=== PATIENT | female | born 1975 | race Caucasian/White ===

== ENCOUNTER 2016-06-10 08:28 | Emergency (ER) | payer SELFPAY ==
[~2016-06-10] VITALS: Wt 98.0 kg
[2016-06-10] MEDS ORDERED: IBUPROFEN 800 MG TAB PO ONE (09:30)
--- NOTE | 2016-06-10 09:51 | RADRPT ---
PROCEDURE: CT Brain without contrast. CLINICAL INDICATION: Parietal headaches for 3 days TECHNIQUE: CT scan of the brain was performed on a multidetector high-resolution CT scan. Axial im aging was obtained of the brain without contrast administration. Coronal and sagittal reformatted i mages were obtained from the axial source images. Standard CT scan of the head without contrast prot ocols were performed. The total exam CTDI equals 44.73 mGy and the total exam DLP equals 630.2 mGy-cm. One or more of the following dose reduction techniques were used: - Automated exposure control. - Adjustment of the mA and/or kV according to patient size. Use of iterative reconstruction technique. COMPARISON: None. FINDINGS: The ventricular system and peripheral CSF spaces are unremarkable. Negative for intracranial masses hemorrhages or midline shift. Thapa-white matter differentiation is unremarkable. The bones and ca lvarium are intact. Paranasal sinuses visualized are unremarkable. The mastoids are unremarkable. IMPRESSION: Normal CT scan of the head without contrast. RPTAT:AAJJ Physician Kyle Date Time Electronically viewed and signed by Physician Kyle on 06/10/2016 09:51 BM/
--- NOTE | 2016-06-10 13:09 | ERD ---
ER Documentation Chief Complaint Date/Time DATE: 06/10/16 TIME: 13:06 Chief Complaint HEADACHE X 4 DAYS HPI Patient is a 32-year-old female with no medical problems who presents with a headache. The patient also has bilateral lower extremity swelling. She has had a headache for the past 15 days and it comes and goes. She tried Tylenol for pain but none today. She has had bilateral lower extremity swelling the left being more than the right for the past 2 days. She has no swelling currently though and says that it is worse at night. 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 Upon review of old medical records this is the patient's first visit to the emergency department. ROS All systems reviewed and are negative except as per history of present illness. Allergies Allergies: Coded Allergies: No Known Allergy (Unverified , 06/10/16) PMhx/Soc Medical and Surgical Hx: pt denies Medical Hx, pt denies Surgical Hx History of Surgery: No Anesthesia Reaction: No Hx Neurological Disorder: No Hx Respiratory Disorders: No Hx Cardiac Disorders: No Hx Psychiatric Problems: No Hx Miscellaneous Medical Probl: No Hx Alcohol Use: No Hx Substance Use: No Hx Tobacco Use: No Smoking Status: Never smoker FmHx Family History: No diabetes Physical Exam Vitals Vital Signs Date Time Temp Pulse Resp B/P Pulse Ox O2 Delivery O2 Flow Rate FiO2 06/10/16 08:30 98.0 79 18 130/71 99 Physical Exam Const: No acute distress Head: Atraumatic Eyes: Normal Conjunctiva ENT: Normal External Ears, Nose and Mouth. Neck: Full range of motion..~ No meningismus. Resp: Clear to auscultation bilaterally Cardio: Regular rate and rhythm, no murmurs Abd: Soft, non tender, non distended. Normal bowel sounds Skin: No petechiae or rashes Back: No midline or flank tenderness Ext: No cyanosis, or edema Neur: Awake and alert, cranial nerves II through XII are intact, no slurred speech Psych: Normal Mood and Affect Results 24 hrs Current Medications Medications (Trade) Dose Ordered Sig/Nisha Route PRN Reason Start Time Stop Time Status Last Admin Dose Admin Ibuprofen (Motrin) 800 mg ONCE ONCE PO 06/10/16 09:30 06/10/16 09:31 DC 06/10/16 09:09 Procedures/MDM EKG read by me: Rate/Rhythm: Regular rate and rhythm at a normal rate Intervals: Normal Impression: No evidence of ischemia or arrhythmia CT head negative per radiology. Patient is a 40-year-old female who presents with headache and bilateral lower extremity swelling. At this point I believe outpatient management is appropriate. The patient has a normal EKG and normal CT scan of the brain. I doubt intracranial hemorrhage, mass, or meningitis. I doubt true congestive heart failure at this time. The patient has no swelling in the emergency department and I doubt DVT or infection. The patient will need to follow-up with the local clinics as she does not currently have a primary doctor. She can return for any worsening symptoms. Departure Diagnosis: Primary Impression: Edema Edema type: unspecified Qualified Code: R60.9 - Edema, unspecified type Additional Impression: Headache Headache type: unspecified Headache chronicity pattern: acute headache Intractability: not intractable Qualified Code: R51 - Acute nonintractable headache, unspecified headache type Condition: Fair Patient Instructions: Self-Care for Headaches, Peripheral Edema, Bilateral [facility]errals[facility] Usted se antoine hecho un examen mdico de control que le indica que no est en fallon condicin que requiera tratamiento urgente en el Departamento de Emergencia. Un estudio ms profundo y el tratamiento de chambers condicin pueden esperar sin ningn riesgo hasta que usted sea atendida/o en el consultorio de chambers mdico o fallon cl ros. Es responsabilidad suya arreglar fallon ike para el seguimiento del krishna. MANEJO DE CONDICIONES NO URGENTES EN EL FUTURO 1) Si usted tiene un mdico de atencin primaria: Usted debera llamar a chambers mdico de atencin primaria antes de venir al departamento de emergencia. Despus de las horas de consultorio, chambers doctor o chambers asociado/a est disponible por telfono. El mdico o enfermero de yadira en el servicio telefnico puede asesorarle por ericka medio para atender el problema, o krishna contrario se puede programar fallon ike. 2) Si usted no tiene un mdico de atencin primaria: Llame al mdico o clnica de referencia que aparece abajo kassandra las horas de consultorio para hacer fallon ike para que le vean. CLINICAS: [facility] [phone] [facility] [phone] [facility] [phone] [place] [phone] [place] [address] [phone] [facility] [phone] Additional Instructions: Llame al doctor MAANA y adam fallon IKE PARA DENTRO DE 1-2 QUILES.Dgale a la secretaria que nosotros le instruimos hacer esta ike.Avise o llame si chambers condicin se empeora antes de la ike. Regresa aqui si peor o no mejor. CHRISTINE COSME MD Jun 10, 2016 13:09
== END 2016-06-10 10:15 | disposition home or self-care (01) ==
LOC: FTE 08:28
DX: R60.0 Localized edema (principal)
CPT/HCPCS: 70450; 93005

== ENCOUNTER 2018-01-11 20:43 | Emergency (ER) | END 2018-01-12 00:30 | disposition home or self-care (01) ==